=== PATIENT | male | born 1995 | race Caucasian/White ===

== ENCOUNTER 2024-05-02 19:56 | Emergency (ER) | payer SELFPAY | END 2024-05-02 21:00 | disposition home or self-care (01) | LOC: CSHERS 19:56 | DX: S01.112A Laceration without foreign body of left eyelid and periocular area, initial encounter (principal); W22.01XA Walked into wall, initial encounter; Z23 Encounter for immunization | CPT/HCPCS: 12011; 90471; 90715; 99284 ==